=== PATIENT | male | born 1945 | race Caucasian/White ===

== ENCOUNTER 2018-11-25 19:46 | Observation (INO) | payer MEDICARE, OTHER ==
[~2018-11-25] VITALS: Ht 182.9 cm; Wt 163.8 kg
[~2018-11-25 19:46] MED LIST: ACETAMINOPHEN650 M1 PO; CITALOPRAM HBR20 MG PO; COLESTIPOL HCL1 G1 PO; DIGOXIN250 MCG PO; HYDROCODON-ACE1 EAC3 PO; LANTUS100 UNIT/1 SQ; LANTUS100 UNITS/ SQ; LEVOTHYROXINE175 MCG PO; LISINOPRIL5 MG PO; LYRICA75 MG PO; MIRALAX PO; MIRALAX17 GM PO; MULTIVITAMIN W1 EACH PO; NASONEX; NOVOLOG100 UNITS1 SQ; PRAVASTATIN SOD20 MG PO; PRAVASTATIN SOD40 MG PO; SPIRONOLACTONE25 MG PO; SYNTHROID175 MCG PO; TORSEMIDE20 MG PO; ULTRAM 50MG50 MG PO; VITAMIN B-12500 MCG PO; VITAMIN D1000 UNI1 PO; VITMAIN PO; WARFARIN SODIU2.5 MG PO; WARFARIN SODIU7.5 MG PO; Z.0.DEMADEX20 MG; Z.0.DIOVAN40 MG; Z.0.HUMALOG100 UNIT/; Z.0.JANUVIA50 MG; Z.0.LANTUS100 UNIT/1; Z.0.NORVASC5 MG; Z.0.PRAVASTATIN SOD4; Z.0.SPIRONOLACTONE50; Z.0.SYNTHROID175 MCG
--- OUTSIDE RECORDS SUMMARY | 2018-11-25 19:50 | XMS REPORT | Summary of Care ---
Author Author Roopa Freeman LVN Organization Unknown Address Unknown Phone Unavailable Care Team Providers Care Bond Writer Name Role Phone MARIO Gonzales, CRISTIAN Unavailable Unavailable Roopa Freeman LVN Unavailable Unavailable CADY Gonzales, ANIBAL Unavailable Unavailable TOBIAS Gonzales, JENSEN Unavailable Unavailable MARIO SPIVEY IA, CRISTIAN Quezada Unavailable Unavailable Tobias SPIVEY, Jensen Unavailable Unavailable SUSAN SPIVEY IA, TEMI Monaco Unavailable Unavailable GHASSAN SPIVEY IA, CHARMAINE COSME Unavailable Unavailable ESCOBAR SPIVEY [place], REILLY Chavez Unavailable Unavailable Johny SPIVEY, Jordi Unavailable Unavailable Unavailable Unavailable Functional Status Name Dates Details Functional status health issues are not documented Status: Name Dates Details Cognitive status health issues are not documented Status: Problems Name Dates Details Murmur (785.2, R01.1) Status: Active Restless legs syndrome (333.94, G25.81) Status: Active Pre-procedural examination (V72.84, Z01.818) Status: Active Colon cancer screening (V76.51, Z12.11) Status: Active Need for hepatitis C screening test (V73.89, Z11.59) Status: Active Neuropathy (355.9, G62.9) Status: Active Need for Tdap vaccination (V06.1, Z23) Status: Active Lymphedema (457.1, I89.0) Status: Active Need for pneumococcal vaccine (V03.82, Z23) Status: Active Dyspnea on exertion (786.09, R06.09) Status: Active Obstructive sleep apnea (327.23, G47.33) Status: Active 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, 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) Status: Active Conjunctivitis (372.30, H10.9) Status: Active Constipation (564.00, K59.00) Status: Active Multiple wounds of skin (782.9, R23.8) Status: Active Falling (E888.9, R29.6) Status: Active Encounter for current long-term use of anticoagulants (V58.61, Z79.01) Status: Active Annual physical exam (V70.0, Z00.00) Status: Active 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, E11.49) Status: Active Venous insufficiency (459.81, I87.2) Status: Active Depressive disorder (311, F32.9) Status: Active Osteoarthritis (715.90, M19.90) Status: Active Lumbar foraminal stenosis (724.02, M99.83) Status: Active Morbid obesity (278.01, E66.01) Status: Active Postoperative urinary retention (997.5, N99.89) Status: Active Peripheral vascular disease (443.9, I73.9) Status: Active Diabetes mellitus (250.00, E11.9) Status: Active Renal cyst, right (753.10, N28.1) Status: Active 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, Z95.2) Status: Active Stasis edema, bilateral (459.30, I87.303) Status: Active Cellulitis, unspecified cellulitis site (682.9, L03.90) Status: Active Anticoagulant long-term use (V58.61, Z79.01) Status: Active Aortic valve stenosis, nonrheumatic (424.1, I35.0) Status: Active 3-vessel CAD (414.00, I25.10) Status: Active CAD S/P percutaneous coronary angioplasty (414.01, I25.10) Status: Active Stage III chronic kidney disease (585.3, N18.3) Status: Active Bilateral edema of lower extremity (782.3, R60.0) Status: Active Atrial fibrillation (427.31, I48.91) Status: Active Chronic pain (338.29, G89.29) Status: Active Influenza vaccine needed (V04.81, Z23) Status: Active Type 2 diabetes mellitus with chronic kidney disease, with long-term current use of insulin, unspecified CKD stage (250.40, E11.22) Status: Active Essential (primary) hypertension (401.9, I10) Status: Active Mixed hyperlipidemia (272.2, E78.2) Status: Active Hypothyroidism (244.9, E03.9) Status: Active Vitamin D deficiency (268.9, E55.9) Status: Active Pancreatic mass (577.9, K86.9) Status: Active Counseling regarding advanced directives (V65.49, Z71.89) Status: Active Medications Name Dates Details GlucaGen HypoKit 1 MG Injection Solution Reconstituted Use as needed for severe hypoglycemia ANIBAL LAZAR M.D. * Start : 25-Aug-2012 Active Spironolactone 50 MG Oral Tablet TAKE 1 TABLET EVERY DAY * Quantity: 90 Refills: 3 CRISTIAN MARTIN M.D. * Start : 25-Aug-2012 Active Vitamin D 1000 UNIT CAPS 3 a day * Refills: 0 ANIBAL LAZAR M.D. * Start : 25-Aug-2012 Active Vitamin B-12 500 MCG Oral Tablet TAKE 1 TABLET EVERY OTHER DAY. * Refills: 0 ANIBAL LAZAR M.D. * Start : 25-Aug-2012 Active OneTouch Verio In Vitro Strip Check BG 4x a day * Quantity: 4 Refills: 4 ANIBAL LAZAR M.D. * Start : 26-Aug-2012 Active 100 Strip Box OneTouch Delica Lancets 33G Check BG 3x a day * Refills: 0 ANIBAL LAZAR M.D. * Start : 26-Aug-2012 Active Insulin Syringe 29G X 1/2" 1 ML 5 a day * Quantity: 500 Refills: 3 ANIBAL LAZAR M.D. * Start : 26-Aug-2012 Active Multi-Day Vitamins TABS TAKE 1 TABLET DAILY. * Refills: 0 Active Pravastatin Sodium 40 MG Oral Tablet TAKE 1 TABLET AT BEDTIME. * Quantity: 90 Refills: 3 CRISTIAN MARTIN M.D. * Start : 22-Nov-2014 Active NovoLOG 100 UNIT/ML Subcutaneous Solution INJECT 50-75 UNITS WITH MEALS, INJECT 10-20 UNITS WITH SNACKS; Up to 200 a day * Quantity: 20 Refills: 1 ANIBAL LAZAR M.D. Active 10 ML Vial Tresiba FlexTouch 200 UNIT/ML Subcutaneous Solution Pen-injector INJECT 60-70 UNITS EVERY DAY MAY SELF ADJUST UP TO 120 UNITS A DAY * Quantity: 6 Refills: 0 ANIBAL LAZAR M.D. * Start : 21-May-2016 Active 3 x 3 ML Pen BD Pen Needle Mini U/F 31G X 5 MM 1 a day * Quantity: 1 Refills: 3 ANIBAL LAZAR M.D. * Start : 21-May-2016 Active 100 Unit Box MiraLax Oral Powder TAKE SCOOP PRN * Refills: 0 Active Gabapentin 100 MG Oral Capsule Take 1 capsule in the morning and take 2 capsules at night * Quantity: 90 Refills: 2 CRISTIAN MARTIN M.D. * Start : 09-Feb-2018 Active Torsemide 20 MG Oral Tablet TAKE 1 TABLET ONCE DAILY. * Quantity: 90 Refills: 1 JENSEN KC M.D. Active BD Insulin Syringe U/F 30G X 1/2" 1 ML USE 5 TIMES A DAY * Quantity: 5 Refills: 3 ANIBAL LAZAR M.D. * Start : 10-Nov-2017 Active 100 Unit Box Clopidogrel Bisulfate 75 MG Oral Tablet TAKE 1 TABLET BY MOUTH EVERY DAY * Quantity: 90 Refills: 1 JENSEN KC M.D. * Start : 19-Sep-2018 Active [place] Nasal Mist SOLN USE NEEDED * Refills: 0 Active Levothyroxine Sodium 125 MCG Oral Tablet TAKE 2 TABLETS BY MOUTH EVERY DAY WED TO ; 3 TABLETS ON SUN * Quantity: 190 Refills: 1 ANIBAL LAZAR M.D. * Start : 30-Jul-2018 Active Hydrocodone-Acetaminophen 10-325 MG Oral Tablet TAKE 1 TABLET EVERY 6 HOURS as needed- DR. BARRERA * Refills: 0 Active Aspirin EC Low Dose 81 MG Oral Tablet Delayed Release * Quantity: 30 Refills: 6 CRISTIAN MARTIN M.D. * Start : 26-Aug-2018 Active Allergies and Adverse Reactions Name Dates Details No Known Drug Allergies (Allergy) Status: Active Past Medical History Name Dates Details Influenza vaccine needed (V04.81, Z23) Status: Active History of Abscess of toe of left foot (681.10, L02.612) Status: Resolved History of Accidental fall, initial encounter (E888.9, W19.XXXA) Status: Resolved History of Atherosclerosis Of The Anterior Tibial Artery (440.20) Status: Resolved History of Atrial fibrillation (427.31, I48.91) Status: Resolved History of Cellulitis of both lower extremities (682.6, L03.115) Status: Resolved History of Cellulitis of right lower leg (682.6, L03.115) Status: Resolved History of Chronic midline low back pain without sciatica (724.2, M54.5) Status: Resolved History of Chronic Renal Failure (585.9) Status: Resolved History of congestive heart disease (V12.59, Z86.79) Status: Resolved History of Cyst of skin (706.2, L72.9) Status: Resolved History of decubitus ulcer (V13.3, Z87.2) Status: Resolved History of depression (V11.8, Z86.59) Status: Resolved History of Diabetic peripheral neuropathy (250.60, E11.42) Status: Resolved History of diarrhea (V12.79, Z87.898) Status: Resolved History of Ear bleeding, right (388.69, H92.21) Status: Resolved History of eating disorder (V11.8, Z86.59) Status: Resolved History of edema (V13.89, Z87.898) Status: Resolved History of Excessive anticoagulation (V58.61) Status: Resolved History of Knee pain, right (719.46, M25.561) Status: Resolved History of laceration of skin (V15.59, Z87.828) Status: Resolved History of leukocytosis (V12.3, Z86.2) Status: Resolved History of low back pain (V13.59, Z87.39) Status: Resolved History of Lumbar disc disease with radiculopathy (722.10, M51.16) Status: Resolved History of Non-pressure chronic ulcer of lower leg (707.10, L97.909) Status: Resolved History of Onychomycosis of toenail (110.1, B35.1) Status: Resolved History of Other atopic dermatitis (691.8, L20.89) Status: Resolved History of peripheral vascular disease (V12.59, Z86.79) Status: Resolved History of pilonidal cyst (V13.3, Z87.2) Status: Resolved History of Sacroiliac joint pain (724.6, M53.3) Status: Resolved History of sebaceous cyst (V13.3, Z87.2) Status: Resolved History of sebaceous cyst (V13.3, Z87.2) Status: Resolved History of Skin lesion (709.9, L98.9) Status: Resolved History of SOB (shortness of breath) on exertion (786.05, R06.02) Status: Resolved History of Ulcer, venous stasis (454.0, I83.009) Status: Resolved History of Ulnar nerve entrapment (354.2, G56.20) Status: Resolved History of Venous ulcer (707.9, I83.009) Status: Resolved Personal history of diabetic foot ulcer (V12.29, Z86.31) Status: Resolved Procedures Procedure Dates Details [QL] HEMOGLOBIN A1c Date: 10-Oct-2018 [[facility]] LIPID PANEL Date: 10-Oct-2018 [[facility]] MICROALBUMIN, RANDOM URINE (W/CREATININE) Date: 10-Oct-2018 [[facility]] VITAMIN D, 25-HYDROXY, LC/MS/MS Date: 10-Oct-2018 History of Appendectomy Completed History of Tonsillectomy Completed History of Knee Surgery Completed History of Foot Surgery Completed History of Knee Replacement Completed History of Neuroplasty Decompression Median Nerve At Carpal Tunnel Completed History of Colonoscopy Completed Immunization Name Dates Details Influenza on: 21-Jul-2012 Fluzone INJ Lot #: [id number] on: 08-Aug-2013 Fluzone INJ Lot #: [id number] on: 24-Jul-2014 Fluzone INJ Lot #: [id number] on: 19-Aug-2015 Prevnar 13 Intramuscular Suspension Lot #: [id number] on: 19-Aug-2015 Tdap Lot #: [id number] on: 16-Mar-2016 Fluzone INJ Lot #: [id number] on: 23-Jul-2016 Pneumococcal polysaccharide vaccine, 23 valent Lot #: [id number] on: 02-Sep-2016 Fluzone High-Dose 0.5 ML Intramuscular Suspension Prefilled Syringe Lot #: [id number] on: 04-Aug-2017 Fluzone High-Dose 0.5 ML Intramuscular Suspension Prefilled Syringe Lot #: [id number] on: 26-Aug-2018 Family History Name Dates Details Family history of Cerebral Artery Occlusion Comments: Family History Status: Active Family history of Coronary Artery Disease (V17.49) Comments: Family History Status: Active Family history of Hypertension (V17.49) Comments: Family History Status: Active Name Dates Details Family history of coronary artery disease (V17.3, Z82.49) Status: Active Name Dates Details Family history of coronary artery disease (V17.3, Z82.49) Status: Active Name Dates Details Family history of coronary artery disease (V17.3, Z82.49) Status: Active Family history of cardiac disorder (V17.49, Z82.49) Status: Active Social History Name Dates Details - Status: Name Dates Details Former smoker Vital Signs Date Test Result Details No Known Vitals to report Results Date Description Value Details Results not documented Plan of Care Name Dates Details Planned Observations Planned Goals not documented Planned Encounters Appointment; CRISTIAN MARTIN M.D. On: 25-Nov-2018 11:30 Appointment; ANIBAL LAZAR M.D. On: 10-Jan-2019 14:15 Appointment; NICKY LR On: 09-Jun-2019 13:00 Appointment; JENSEN KC M.D. On: 09-Jun-2019 14:00 Interventions Provided Medication Changes* Gabapentin 100 MG Oral Capsule - Renew Instructions Name Dates Details Instructions not documented Encounters Appointment; JENSEN KC M.D. Encounter Diagnosis: Problem not documented On: 25-Nov-2016 11:00 Appointment; LORRI RYAN NP Encounter Diagnosis: Problem not documented On: 10-Dec-2016 9:30 Appointment; CRISTIAN MARTIN M.D. Encounter Diagnosis: Problem not documented On: 18-Dec-2016 15:45 Appointment; CHRISTOS HINDS Encounter Diagnosis: Problem not documented On: 22-Dec-2016 11:00 Appointment; JENSEN KC M.D. Encounter Diagnosis: Problem not documented On: 28-Dec-2016 9:00 Appointment; CRISTIAN MARTIN M.D. Encounter Diagnosis: Problem not documented On: 11-Jan-2017 14:15 Appointment; CRISTIAN MARTIN M.D. Encounter Diagnosis: Problem not documented On: 08-Feb-2017 14:00 Appointment; ANIBAL LAZAR M.D. Encounter Diagnosis: Problem not documented On: 10-Feb-2017 8:00 Appointment; CRISTIAN MARTIN M.D. Encounter Diagnosis: Problem not documented On: 08-Mar-2017 14:15 Appointment; LORRI RYAN NP Encounter Diagnosis: Problem not documented On: 07-Apr-2017 9:30 Appointment; LORRI RYAN NP Encounter Diagnosis: Problem not documented On: 22-Apr-2017 8:45 Appointment; LORRI RYAN NP Encounter Diagnosis: Problem not documented On: 21-May-2017 8:00 Appointment; ANIBAL LAZAR M.D. Encounter Diagnosis: Problem not documented On: 25-May-2017 14:15 Appointment; CRISTIAN MARTIN M.D. Encounter Diagnosis: Problem not documented On: 04-Jun-2017 13:15 Appointment; CRISTIAN MARTIN M.D. Encounter Diagnosis: Problem not documented On: 07-Jul-2017 13:30 Appointment; CRISTIAN MARTIN M.D. Encounter Diagnosis: Problem not documented On: 04-Aug-2017 16:00 Appointment; ANIBAL LAZAR M.D. Encounter Diagnosis: Problem not documented On: 23-Aug-2017 14:45 Appointment; CRISTIAN MARTIN M.D. Encounter Diagnosis: Problem not documented On: 21-Sep-2017 14:45 Appointment; JOSE-MS, ECHO Encounter Diagnosis: Problem not documented On: 27-Sep-2017 10:00 Appointment; TEMI DAVIS M.D. Encounter Diagnosis: Problem not documented On: 05-Oct-2017 10:00 Appointment; CRISTIAN MARTIN M.D. Encounter Diagnosis: Problem not documented On: 19-Oct-2017 10:15 Appointment; CRISTIAN MARTIN M.D. Encounter Diagnosis: Problem not documented On: 02-Nov-2017 11:30 Appointment; CRISTIAN MARTIN M.D. Encounter Diagnosis: Problem not documented On: 02-Dec-2017 11:30 Appointment; ANIBAL LAZAR M.D. Encounter Diagnosis: Problem not documented On: 06-Dec-2017 10:00 Appointment; JENSEN KC M.D. Encounter Diagnosis: Problem not documented On: 27-Dec-2017 9:00 Appointment; CRISTIAN MARTIN M.D. Encounter Diagnosis: Problem not documented On: 28-Dec-2017 10:00 Appointment; HAIDERORE-MS, ECHO Encounter Diagnosis: Problem not documented On: 10-Jan-2018 11:00 Appointment; JENSEN KC M.D. Encounter Diagnosis: Problem not documented On: 12-Jan-2018 14:20 Appointment; CRISTIAN MARTIN M.D. Encounter Diagnosis: Problem not documented On: 13-Jan-2018 11:45 Appointment; CHARMAINE FERRELL M.D. Encounter Diagnosis: Problem not documented On: 14-Jan-2018 9:30 Appointment; REILLY CODY M.D. Encounter Diagnosis: Problem not documented On: 14-Jan-2018 10:45 Appointment; CRISTIAN MARTIN M.D. Encounter Diagnosis: Problem not documented On: 01-Feb-2018 13:15 Appointment; ANIBAL LAZAR M.D. Encounter Diagnosis: Problem not documented On: 09-Mar-2018 13:00 Appointment; CRISTIAN MARTIN M.D. Encounter Diagnosis: Problem not documented On: 09-Mar-2018 15:15 Appointment; JENSEN KC M.D. Encounter Diagnosis: Problem not documented On: 23-Mar-2018 10:00 Appointment; JORDI REYNOSO M.D. Encounter Diagnosis: Problem not documented On: 23-Mar-2018 10:00 Appointment; LORRI RYAN NP Encounter Diagnosis: Problem not documented On: 30-Mar-2018 10:15 Appointment; CRISTIAN MARTIN M.D. Encounter Diagnosis: Problem not documented On: 04-Apr-2018 14:00 Appointment; JENSEN KC M.D. Encounter Diagnosis: Problem not documented On: 06-Apr-2018 9:00 Appointment; LORRI RYAN NP Encounter Diagnosis: Problem not documented On: 13-Apr-2018 10:30 Appointment; JORDI REYNOSO M.D. Encounter Diagnosis: Problem not documented On: 14-Apr-2018 11:15 Appointment; JENSEN KC M.D. Encounter Diagnosis: Problem not documented On: 15-Apr-2018 15:40 Appointment; JENSEN KC M.D. Encounter Diagnosis: Problem not documented On: 04-May-2018 9:40 Appointment; CRISTIAN MARTIN M.D. Encounter Diagnosis: Problem not documented On: 10-May-2018 13:45 Appointment; JENSEN KC M.D. Encounter Diagnosis: Problem not documented On: 06-Jun-2018 9:00 Appointment; ANIBAL LAZAR M.D. Encounter Diagnosis: Problem not documented On: 24-Jun-2018 12:00 Appointment; KASEY LR Encounter Diagnosis: Problem not documented On: 24-Jun-2018 15:30 Appointment; JENSEN KC M.D. Encounter Diagnosis: Problem not documented On: 24-Jun-2018 16:00 Appointment; CRISTIAN MARTIN M.D. Encounter Diagnosis: Problem not documented On: 27-Jun-2018 10:30 Appointment; BOBBY HARLEY NP Encounter Diagnosis: Problem not documented On: 12-Jul-2018 12:00 Appointment; CRISTIAN MARTIN M.D. Encounter Diagnosis: Problem not documented On: 26-Aug-2018 10:30 Appointment; CRISTIAN MARTIN M.D. Encounter Diagnosis: Problem not documented On: 26-Aug-2018 10:30 Appointment; ANIBAL LAZAR M.D. Encounter Diagnosis: Problem not documented On: 10-Oct-2018 15:15 Appointment; JORDI REYNOSO M.D. Encounter Diagnosis: Problem not documented On: 12-Oct-2018 9:15
[2018-11-25 21:29] LABS: BASOPHILS # (AUTO) 0.1 (0.0-0.1); BASOPHILS % 0.6 % (0.0-1.0); EOSINOPHILS # (AUTO) 0.2 (0.0-0.4); EOSINOPHILS % 2.4 % (0.0-6.0); HEMATOCRIT 35.7 % (38.2-49.6); HEMOGLOBIN 11.2 g/dL (14.0-18.0); LYMPHOCYTES # (AUTO) 1.8 (1.0-3.2); MEAN CORPUSCULAR HEMOGLOBIN 30.2 pg (28-32); MEAN CORPUSCULAR HGB CONC 31.4 g/dL (31-35); MEAN CORPUSCULAR VOLUME 96.2 fL (81-99); MONOCYTES # (AUTO) 0.9 (0.2-0.8); MONOCYTES % 9.1 % (4.4-11.3); NEUTROPHILS # (AUTO) 6.4 (2.1-6.9); NEUTROPHILS % 68.5 % (38.7-80.0); PLATELET COUNT 199 x10e3/uL (140-360); RED BLOOD COUNT 3.71 x10e6/uL (4.3-5.7); RED CELL DISTRIBUTION WIDTH 18.1 % (11.7-14.4)
[2018-11-25 21:57] LABS: ALBUMIN 3.2 g/dL (3.5-5.0); ANION GAP 12.6 mmol/L (8-16); CALCIUM 9.1 mg/dL (8.4-10.2); CREATININE, SERUM 1.37 mg/dL (0.72-1.25); POTASSIUM 4.6 mmol/L (3.5-5.1)
[2018-11-25 22:03] LABS: CREATINE KINASE MB 3.8 ng/mL (0-5.0)
--- NOTE | 2018-11-25 22:49 | Diagnostic Imaging Report ---
Study made available for interpretation on 11/25/2018 at 10:30 PM. EXAMINATION: Head and cervical spine CT without contrast. HISTORY: Status post fall, hitting the back of the head, neck stiffness, head and neck pain. COMPARISON: None. TECHNIQUE: Multidetector axial images were obtained without contrast from the foramen magnum to the vertex and through the cervical spine. The images were reconstructed using brain and bone algorithms. Thin section brain images were reformatted into coronal and sagittal planes. Image quality: Difficulty accommodating the head within the scanner due to patient's rigidity, also patient's large body habitus limits performing adequately the head and neck studies as well as the interpretation of the studies. Dose modulation, iterative reconstruction, and/or weight based adjustment of the mA/kV was utilized to reduce the radiation dose to as low as reasonably achievable. HEAD CT FINDINGS: Skull: No lytic or blastic lesions. No fractures. Parenchyma: The anterior portion of the frontal lobes was not included in the exam. No abnormalities in the visualized brain parenchyma. No mass, hemorrhage or CT evidence of acute vascular insult. Brain volume: Normal for age. Ventricles: No hydrocephalus or displacement. Arteries: No density suggestive of thrombus. Dural sinuses: No abnormal density. Extra-axial spaces: No abnormal density. Foramen magnum: No mass, Chiari malformation, or basilar invagination. Sella: No obvious mass. Paranasal/mastoid sinuses: Imaged portions unremarkable. CERVICAL SPINE CT FINDINGS: Alignment:Straightening of the cervical lordosis. Soft tissues: Normal. Vertebrae: Normal height and density. No acute fracture, infection or neoplasm. Anterior bridging osteophytes from C5 to T1. Probable interbody fusion from C6 to T1 which is only partially visualized. Degenerative changes: C1-C2: Degenerative changes without stenosis C2-C3: Prominent uncovertebral and facet arthrosis. Moderate right and severe left foraminal stenosis. C3-C4: Uncovertebral and facet arthrosis. Severe bilateral foraminal stenosis. C4-C5: Uncovertebral and facet arthrosis. Severe bilateral foraminal stenosis. C5-C6: Disc osteophyte complex formation, uncovertebral and facet arthrosis. Severe right and mild left foraminal stenosis. C6-C7: Disc osteophyte complex formation, uncovertebral and facet arthrosis. Mild right and moderate left foraminal stenoses C7-T1: Uncovertebral and facet arthropathies. Severe right and moderate left foraminal stenosis. IMPRESSION: Suboptimal evaluation of the head and cervical spine as detailed above. Head CT: The frontal lobes are not completely included in this study and cannot be evaluated. No abnormalities in the visualized brain parenchyma, particularly no evidence of hemorrhage. Cervical spine CT: 1. Grossly nonacute displaced fractures or dislocations. 2. Chronic degenerative changes as described. Note: Acute post traumatic spinal cord, vascular or ligamentous injury cannot adequately be assessed with CT. Signed by: Dr. Shelia Duenas M.D. on 11/25/2018 10:46 PM
--- NOTE | 2018-11-25 23:02 | Diagnostic Imaging Report ---
EXAMINATION: CT of the lumbar spine HISTORY: Status post fall back, head and spine trauma, pain. COMPARISON: None available TECHNIQUE: Multidetector helical axial images were obtained without contrast from L1 to S1. The images were reconstructed using bone and soft tissue algorithms and were viewed in axial, sagittal, and coronal planes. Dose modulation, iterative reconstruction, and/or weight based adjustment of the mA/kV was utilized to reduce the radiation dose to as low as reasonably achievable. Image quality: Poor spatial resolution related to x-ray beam attenuation significantly limited the evaluation of the study. FINDINGS: Alignment: Straightening of the lumbar lordosis.. Vertebral bodies: - Diffuse osteopenia. - Bone bridging laterally from T12 to L5. -Left posterior fusion from L2 to S1 and on the right L5-S1. -Large likely degenerative subchondral cyst adjacent to the superior endplate of S1. -Also interspinous fusion in the thoracolumbar region and at L3-L4. Paraspinal muscles: Prominent atrophy of the paraspinal muscles. Intervertebral disks: -Limited evaluation, overall this bulges, marginal endplate osteophytes and facet arthroses from L2-L3 to L5-S1 with canal and foraminal narrowing, more prominent on the left at L4-L5 and on the right at L5-S1. -Symmetric disc bulge with vacuum phenomena at L5-S1. IMPRESSION: 1. Very suboptimal study as detail above. In spite of this limitation grossly no acute displaced fracture or dislocation. 2. Diffuse osteopenia and multilevel chronic degenerative changes as detailed above. 3. Interbody and posterior elements fusion as described, comparison to prior studies if available is recommended. Signed by: Dr. Shelia Duenas M.D. on 11/25/2018 10:59 PM
[2018-11-25] MEDS ORDERED: LEVOTHYROXINE125 MCG PO (23:40)
[2018-11-25] MEDS ORDERED: HYDROCODON-ACE1 EAC9 PO (23:40)
[2018-11-25] MEDS ORDERED: GABAPENTIN100 MG PO ×2 (23:40)
[2018-11-25] MEDS ORDERED: TRESIBA SC (23:40)
[2018-11-25] MEDS ORDERED: SPIRONOLACTONE50 MG PO (23:40)
[2018-11-25] MEDS ORDERED: CLOPIDOGREL75 MG PO (23:40)
[2018-11-25] MEDS ORDERED: PRAVASTATIN SOD40 MG PO (23:40)
[2018-11-25] MEDS ORDERED: NOVOLOG100 UNITS1 (23:40)
[2018-11-25] MEDS ORDERED: ASPIR 8181 MG PO (23:50)
[2018-11-25] MEDS ORDERED: SODIUM CHLORIDE 0.9% 1000ML 1,000 ML ONE (23:55)
[2018-11-26] VITALS (9 sets, daily range): BP systolic 100–125; BP diastolic 51–60
[2018-11-26] MEDS ORDERED: SODIUM CHLORIDE 0.9% 1000ML 1,000 ML IV SCH (00:04)
--- OUTSIDE RECORDS SUMMARY | 2018-11-26 00:10 | XMS REPORT ---
Author [facility] Address Unknown Phone Unavailable Care Team Providers Care Information Writer Name Role Phone Maciej FRENCH Unavailable Unavailable Problems This patient has no known problems. Allergies, Adverse Reactions, Alerts This patient has no known allergies or adverse reactions. Medications This patient has no known medications. Results Test Description Test Time Test Comments Text Results Atomic Results Result Comments CT LUMBAR SPINE WO 2018-11-25 22:47:00 [place] [address] Patient Name: OPHELIA GRAY JR MR #: [id number] : 1945 Age/Sex: 73/M Req #: [id number] Adm Physician: Ordered by: REILLY FRENCH MD Report #: [id number] Location: ER Room/Bed: Procedure: [id number] CT/CT LUMBAR SPINE WO Exam Date: 11/25/18 Exam Time: 2119 REPORT STATUS: Signed EXAMINATION: CT of the lumbar spine HISTORY: Status post fall back, head and spine trauma, pain. COMPARISON: None available TECHNIQUE: Multidetector helical axial images were obtained without contrast from L1 to S1. The images were reconstructed using bone and soft tissue algorithms and were viewed in axial, sagittal, and coronal planes. Dose modulation, iterative reconstruction, and/or weight based adjustment of the mA/kV was utilized to reduce the radiation dose to as low as reasonably achievable. Image quality: Poor spatial resolution related to x-ray beam attenuation significantly limited the evaluation of the study. FINDINGS: Alignment: Straightening of the lumbar lordosis.. Vertebral bodies: - Diffuse osteopenia. - Bone bridging laterally from T12 to L5. -Left posterior fusion from L2 to S1 and on the right L5-S1. -Large likely degenerative subchondral cyst adjacent to the superior endplate of S1. -Also interspinous fusion in the thoracolumbar region and at L3-L4. Paraspinal muscles: Prominent atrophy of the paraspinal muscles. Intervertebral disks: -Limited evaluation, overall this bulges, marginal endplate osteophytes and facet arthroses from L2-L3 to L5-S1 with canal and foraminal narrowing, more prominent on the left at L4-L5 and on the right at L5-S1. -Symmetric disc bulge with vacuum phenomena at L5-S1. IMPRESSION: 1. Very suboptimal study as detail above. In spite of this limitation grossly no acute displaced fracture or dislocation. 2. Diffuse osteopenia and multilevel chronic degenerative changes as detailed ab ove. 3. Interbody and posterior elements fusion as described, comparison to prior studies if available is recommended. Signed by: Dr. Killian Duenas M.D. on 11/25/2018 10:59 PM Dictated By: KILLIAN DUENAS MD 58 Transcribed By: JOSE on 11/25/182258 COPY TO: REILLY FRENCH MD CT BRAIN WO 2018-11-25 22:38:00 [place] [address] Patient Name: OPHELIA GRAY JR MR #: [id number] : 1945 Age/Sex: 73/M Req #: [id number] Adm Physician: Ordered by: REILLY FRENCH MD Report #: [id number] Location: Room/Bed: Procedure: [id number] CT/CT BRAIN WO Exam Date: 11/25/18 Exam Time: 2119 REPORT STATUS: Signed Study made available for interpretation on 11/25/2018 at 10:30 PM. EXAMINATION: Head and cervical spine CT without contrast. HISTORY: Status post fall, hitting the back of the head, neck stiffness, head and neck pain. COMPARISON: None. TECHNIQUE: Multidetector axial images were obtained without contrast from the foramen magnum to the vertex and through the cervical spine. The images were reconstructed using brain and bone algorithms. Thin section brain images were reformatted into coronal and sagittal planes. Image quality: Difficulty accommodating the head within the scanner due to patient's rigidity, also patient's large body habitus limits performing adequately the head and neck studies as well as the interpretation of the studies. Dose modulation, iterative reconstruction, and/or weight based adjustment of the mA/kV was utilized to reduce the radiation dose to as low as reasonably achievable. HEAD CT FINDINGS: Skull: No lytic or blastic lesions. No fractures. Parenchyma: The anterior portion of the frontal lobes was not included in the exam. No abnormalities in the visualized brain parenchyma. No mass, hemorrhage or CT evidence of acute vascular insult. Brain volume: Normal for age. Ventricles: No hydrocephalus or displacement. Arteries: No density suggestive of thrombus. Dural sinuses: No abnormal density. Extra-axial spaces: No abnormal density. Foramen magnum: No mass, Chiari malformation, or basilar invagination. Sella: No obvious mass. Paranasal/mastoid sinuses: Imaged portions unremarkable. CERVICAL SPINE CT FINDINGS: Alignment:Straightening of the cervical lordosis. Soft tissues: Normal. Vertebrae: Normal height and density. No acute fracture, infection or neoplasm. Anterior bridging osteophytes from C5 to T1. Probable interbody fusion from C6 to T1 which is only partially visualized. Degenerative changes: C1-C2: Degenerative changes without stenosis C2- C3: Prominent uncovertebral and facet arthrosis. Moderate right and severe left foraminal stenosis. C3-C4: Uncovertebral and facet arthrosis. Severe bilateral foraminal stenosis. C4-C5: Uncovertebral and facet arthrosis. Severe bilateral foraminal stenosis. C5-C6: Disc osteophyte complex formation, uncovertebral and facet arthrosis. Severe right and mild left foraminal stenosis. C6-C7: Disc osteophyte complex formation, uncovertebral and facet arthrosis. Mild right and moderate left foraminal stenoses C7- T1: Uncovertebral and facet arthropathies. Severe right and moderate left foraminal stenosis. IMPRESSION: Suboptimal evaluation of the head and cervical spine as detailed above. Head CT: The frontal lobes are not completely included in this study and cannot be evaluated. No abnormalities in the visualized brain parenchyma, particularly no evidence of hemorrhage. Cervical spine CT: 1. Grossly nonacute displaced fractures or dislocations. 2. Chronic degenerative changes as described. Note: Acute post traumatic spinal cord, vascular or ligamentous injury cannot adequately be assessed with CT. Signed by: Dr. Killian Duenas M.D. on 11/25/2018 10:46 PM Dictated By: KILLIAN DUENAS MD 45 Transcribed By: JOSE on 11/25/182245 COPY TO: REILLY FRENCH MD CT CERVICAL SPINE WO 2018-11-25 22:38:00 [place] [address] Patient Name: OPHELIA GRAY JR MR #: [id number] : 1945 Age/Sex: 73/M Req #: [id number] Adm Physician: Ordered by: REILLY FRENCH MD Report #: [id number] Location: ER Room/Bed: Procedure: [id number] CT/CT CERVICAL SPINE WO Exam Date: 11/25/18 Exam Time: 2119 REPORT STATUS: Signed Study made available for interpretation on 11/25/2018 at 10:30 PM. EXAMINATION: Head and cervical spine CT without contrast. HISTORY: Status post fall, hitting the back of the head, neck stiffness, head and neck pain. COMPARISON: None. TECHNIQUE: Multidetector axial images were obtained without contrast from the foramen magnum to the vertex and through the cervical spine. The images were reconstructed using brain and bone algo rithms. Thin section brain images were reformatted into coronal and sagittal planes. Image quality: Difficulty accommodating the head within the scanner due to patient's rigidity, also patient's large body habitus limits performing adequately the head and neck studies as well as the interpretation of the studies. Dose modulation, iterative reconstruction, and/or weight based adjustment of the mA/kV was utilized to reduce the radiation dose to as low as reasonably achievable. HEAD CT FINDINGS: Skull: No lytic or blastic lesions. No fractures. Parenchyma: The anterior portion of the frontal lobes was not included in the exam. No abnormalities in the visualized brain parenchyma. No mass, hemorrhage or CT evidence of acute vascular insult. Brain volume: Normal for age. Ventricles: No hydrocephalus or displacement. Arteries: No density suggestive of thrombus. Dural sinuses: No abnormal density. Extra-axial spaces: No abnormal density. Foramen magnum: No mass, Chiari malformation, or basilar invagination. Sella: No obvious mass. Paranasal/mastoid sinuses: Imaged portions unremarkable. CERVICAL SPINE CT FINDINGS: Alignment:Straightening of the cervical lordosis. Soft tissues: Normal. Vertebrae: Normal height and density. No acute fracture, infection or neoplasm. Anterior bridging osteophytes from C5 to T1. Probable interbody fusion from C6 to T1 which is only partially visualized. Degenerative changes: C1-C2: Degenerative changes without stenosis C2-C3: Prominent uncovertebral and facet arthrosis. Moderate right and severe left foraminal stenosis. C3-C4: Uncovertebral and facet arthrosis. Severe bilateral foraminal stenosis. C4-C5: Uncovertebral and facet arthrosis. Severe bilateral foraminal stenosis. C5-C6: Disc osteophyte complex formation, uncovertebral and facet arthrosis. Severe right and mild left foraminal stenosis. C6-C7: Disc osteophyte complex formation, uncovertebral and facet arthrosis. Mild right and moderate left foraminal stenoses C7-T1: Uncovertebral and facet arthropathies. Severe right and moderate left foraminal stenosis. IMPRESSION: Suboptimal evaluation of the head and cervical spine as detailed above. Head CT: The frontal lobes are not completely included in this study and cannot be evaluated. No abnormalities in the visualized brain parenchyma, particularly no evidence of hemorrhage. Cervical spine CT: 1. Grossly nonacute displaced fractures or dislocations. 2. Chronic degenerative changes as described. Note: Acute post traumatic spinal cord, vascular or ligamentous injury cannot adequately be assessed with CT. Signed by: Dr. Killian Duenas M.D. on 11/25/2018 10:46 PM Dictated By: KILLIAN DUENAS MD 45 Transcribed By: JOSE on 11/25/182245 COPY TO: REILLY DOOLEY MD
[2018-11-26] MEDS ORDERED: CYANOCOBALAMIN 500 MCG PO SCH (00:15)
[2018-11-26] MEDS ORDERED: ASPIRIN 81 MG CHEW TAB PO ONE (00:15)
[2018-11-26] MEDS ORDERED: NON-FORMULARY MEDICATION (Polyethylene Glycol 3350 (Miralax) 17 GM) PO SCH (00:15)
[2018-11-26] MEDS ORDERED: DEXTROSE 50% SYRINGE 50 ML IV PRN (00:15)
[2018-11-26] MEDS ORDERED: ONDANSETRON HCL INJ 2 MG/ML VIAL IV PRN (00:15)
--- NOTE | 2018-11-26 01:20 | NUR ---
Pt received from ER. Pt A&O and in no apparent distress. Pt on RA and tele. Uses walker to ambulate. All safety measures ensured, bed alarm on, and pt call bhatt near. Pt encouraged to use call bhatt for assistance.
[2018-11-26] MEDS: HYDROCODONE/APAP 10MG-325MG TAB PO SCH ×3 (06:12→18:15)
--- NOTE | 2018-11-26 06:58 | NUR ---
Walking rounds and report received from night nurse. POC discussed. Patient was instructed to call for assistance as needed and verbalized understanding. Call bhatt within reach.
[2018-11-26] MEDS: INSULIN REGULAR, HUMAN 100 UNIT/1 ML 3ML VIAL SQ SCH ×4 (07:30→21:01)
[2018-11-26] MEDS: TRISEBA SC SCH (08:29)
[2018-11-26] MEDS ORDERED: CHOLECALCIFEROL 1,000 UNIT TAB PO SCH (09:00)
[2018-11-26] MEDS ORDERED: TRESIBA 60 UNIT SC SCH (09:00)
[2018-11-26] MEDS ORDERED: LEVOTHYROXINE SODIUM 125 MCG TAB PO SCH (09:00)
[2018-11-26] MEDS ORDERED: SPIRONOLACTONE 25 MG TAB PO SCH (09:00)
[2018-11-26] MEDS ORDERED: ASPIRIN 81 MG CHEW TAB PO SCH (09:00)
[2018-11-26] MEDS ORDERED: TORSEMIDE 40 MG PO SCH (09:00)
[2018-11-26] MEDS ORDERED: POLYETHYLENE GLYCOL 3350 17 GM PACK PO SCH (09:00)
[2018-11-26] MEDS ORDERED: NON-FORMULARY MEDICATION (Spironolactone 50 MG) PO SCH (09:00)
[2018-11-26] MEDS ORDERED: CYANOCOBALAMIN 1,000 MCG TAB PO SCH (09:00)
[2018-11-26] MEDS ORDERED: HOME MEDICATION--PATIENTS OWN SC SCH (09:00)
[2018-11-26] MEDS ORDERED: TORSEMIDE 10 MG TAB PO SCH (09:00)
[2018-11-26] MEDS ORDERED: CLOPIDOGREL BISULFATE 75 MG TAB PO SCH (09:00)
[2018-11-26] MEDS ORDERED: GABAPENTIN 100 MG CAP PO SCH ×2 (09:00→21:00)
--- NOTE | 2018-11-26 09:45 | NUR ---
Dr. Nunez making rounds. POC discussed with patient and MD answered all questions at this time.
[2018-11-26 09:59] LABS: CREATINE KINASE MB 2.9 ng/mL (0-5.0)
--- NOTE | 2018-11-26 10:22 | NUR ---
Met earlier with pt. Educated on ALBA letter and he verbalized understanding and signed. Signed copy to pt, original to chart.
--- NOTE | 2018-11-26 10:32 | History and Physical ---
PCP: Nickolas Adams MD CHIEF COMPLAINT: Status post fall with intractable lower back pain. HISTORY: This 73-year-old male morbidly obese, walks with a walker at home. Apparently, he was taking furosemide and Aldactone for his lymphedema chronically in bilateral lower extremities. Patient was having some cramping and fell in the kitchen. He fell on Wednesday and after the fall he was having difficulty to get off the floor. Therefore, he scoots himself up and subsequently required assistance. Patient came in with a slight increase in CK level to approximately 1300. The patient is otherwise stable. He is able to ambulate now with a walker. He is still on IV fluids just generally for rehydration. The patient is otherwise stable at this time. PAST MEDICAL HISTORY 1. Degenerative disk disease both in the upper and lower spinal area, undergoing pain management. 2. Chronic anemia. 3. Hypertension. 4. Lymphedema. 5. Morbidly obese. 6. History of carpal tunnel syndrome with previous surgery. PAST SURGICAL HISTORY: Appendectomy, carpal tunnel surgery, tonsillectomy, hammertoe operation, left knee arthroplasty. SOCIAL HISTORY: Patient lives at home by himself. He does not smoke, use alcohol, or illegal drugs. ALLERGIES: TO NO KNOWN ALLERGIES. HOME MEDICATIONS: List is reviewed. REVIEW OF SYSTEMS: Lower back pain. PHYSICAL EXAMINATION VITAL SIGNS: Temperature is 98, blood pressure , pulse rate 54, respirations 18. GENERAL: The patient is not in acute distress. He is awake. HEENT: Normocephalic, atraumatic, anicteric. NECK: Supple grossly. PULMONARY: Diminished breath sounds due to body habitus. CARDIOVASCULAR: Regular rate and rhythm. ABDOMEN: Soft, morbidly obese. EXTREMITIES: Bilateral lymphedema. SKIN: Some skin abrasion to the lower back area. There is minimal skin drainage. NEUROLOGICAL: No focal deficit. LABORATORY DATA: Sodium is 139, potassium 4.6, chloride 104, bicarb 27, BUN 25, creatinine 1.4, glucose 135. WBC is 9.3, hemoglobin 11.2, hematocrit 35.7, and platelets 199,000. IMPRESSION 1. Lower back pain status post fall. 2. Morbidly obese. 3. Slight skin abrasion to the lower back area. 4. Bilateral lower extremity lymphedema. 5. Slight increase in CK level due to immobility. PLAN: Gentle IV rehydration. Resume home medication with some adjustment. We will monitor the patient closely. Repeated lab work. Patient is pain controlled and should be able to go home within 24 to 48 hours. Job#: [id number] WONG
--- NOTE | 2018-11-26 14:52 | NUR ---
Nutrition Screen Note RD Recommendation for Physician: Continue diet as ordered Plan of Care: RD following, monitoring for adequacy and tolerance Nutrition reason for involvement: Nutrition Risk Trigger - MST Primary Diagnose(s): lumbar strain, rhabdomyolysis Ht:72 in Wt:345lbs BMI:46.8 kg/m2 IBW:178lbs RD Assessment:(11/26/2018) Initial encounter with patient. Pt denies, N,V, D, nor has any difficulty chewing or swallowing. Pt normally eats twice a day. Current Diet: 1800 ADA Malnutrition Evaluation (11/26/2018) The patient does not meet criteria for a specified degree of malnutrition at this time. Will re-evaluate at follow-up as appropriate. Diet Education Needs Assessment: Diet education not indicated. Diet Adequacy: Meeting calorie needs, Meeting protein needs, Meeting fluid needs Tolerance: Tolerating PO Nutrition Care Level: Mehran Salgado RD, LD, [facility]
--- NOTE | 2018-11-26 18:50 | NUR ---
Patient sitting on side of bed without any complaints. Walking rounds done and report given to oncoming shift. Call bhatt within reach.
--- NOTE | 2018-11-26 18:59 | NUR ---
Report received and walking rounds complete. Pt sitting at bedside and in no apparent distress. Pt ambulates with walker. All safety measures ensured and pt call bhatt near. Pt encouraged to use call bhatt for assistance.
[2018-11-26] MEDS ORDERED: NON-FORMULARY MEDICATION (Pravastatin Sodium 40 MG) PO SCH (21:00)
[2018-11-26] MEDS ORDERED: PRAVASTATIN 20 MG TAB PO SCH (21:00)
--- NOTE | 2018-11-26 21:40 | NUR ---
Pt offered shower or bed bath but pt refused
[2018-11-27] MEDS: HYDROCODONE/APAP 10MG-325MG TAB PO SCH ×2 (00:16→06:12)
[2018-11-27 00:17] VITALS: BP 115/68
--- NOTE | 2018-11-27 03:32 | NUR ---
Pt abrasions on back are weepy and also has weepy area on L calf. Areas cleaned with NS and covered with gauze and abd pad.
[2018-11-27 05:30] VITALS: BP 119/61
[2018-11-27 06:04] LABS: ANION GAP 13.6 mmol/L (8-16); CALCIUM 8.9 mg/dL (8.4-10.2); CREATININE, SERUM 1.24 mg/dL (0.72-1.25); POTASSIUM 4.6 mmol/L (3.5-5.1)
--- NOTE | 2018-11-27 07:04 | NUR ---
Report given to oncoming nurse
[2018-11-27 07:05] VITALS: BP 127/66
[2018-11-27] MEDS: INSULIN REGULAR, HUMAN 100 UNIT/1 ML 3ML VIAL SQ SCH (07:30)
[2018-11-27] MEDS: TRISEBA SC SCH (08:38)
--- NOTE | 2018-11-27 08:44 | NUR ---
Dr. Nunze making rounds. Patient will be discharged home today and refused all his AM medications stated, "I will take them when I get home."
[2018-11-27] MEDS ORDERED: TORSEMIDE 10 MG TAB PO SCH (09:00)
--- NOTE | 2018-11-27 09:10 | NUR ---
Written instructions and prescription given. Patient verbalized understanding. IV dc'd, cath intact and small dressing applied. No bleeding noted. Patient called daughter for ride home.
[2018-11-27] MEDS ORDERED: KEFLEX500 MG PO (09:11)
--- NOTE | 2018-11-27 09:32 | Discharge Summary ---
PRIMARY CARE PHYSICIAN: Dr. Nickolas Adams. CHIEF COMPLAINT: Status post fall with lower back pain. HOSPITAL COURSE: The patient is a 73-year-old male with status post fall with abrasion to the left knee and lower back area. No significant redness but there is some drainage from the abrasion. The patient does have bilateral lower extremity lymphedema. He had stopped his medication, diuretic, especially the torsemide due to spasm of the lower extremity and also urination frequently. The patient is otherwise stable, however. The CT of the C-spine and L-spine, there is no compression fractures. There is degenerative disc disease. The patient is undergoing pain management. He will go home today, resume home medication. The patient may continue with torsemide, but he may cut the tablet in half to 20 mg daily. The patient is otherwise stable. We will give the patient Keflex 500 mg 3 times a day for 7 days. The patient will resume home medication. Followup with Dr. Nickolas Adams within a week. Job#: [id number] [place]
== END 2018-11-27 10:14 | disposition home or self-care (01) ==
LOC: ER 19:46 → ERHOLD 11-26 00:08 → IMCU 11-26 02:34
PROVIDERS: ADMIT Internal Medicine; ATTEND Internal Medicine
DX: M54.5 Low back pain (principal); I89.0 Lymphedema, not elsewhere classified; W19.XXXA Unspecified fall, initial encounter; M51.36 Other intervertebral disc degeneration, lumbar region; M50.90 Cervical disc disorder, unspecified, unspecified cervical region; S80.212A Abrasion, left knee, initial encounter; S30.810A Abrasion of lower back and pelvis, initial encounter; Y93.9 Activity, unspecified; Y92.000 Kitchen of unspecified non-institutional (private) residence as the place of occurrence of the external cause; E66.01 Morbid (severe) obesity due to excess calories; Z68.42 Body mass index [BMI] 45.0-49.9, adult
CPT/HCPCS: 36415 ×3; 70450; 72125; 72131; 80048; 80053; 82550 ×2; 82552; 82553 ×2; 82948; 84484 ×2; 85025; 99284; G0378 ×2; J7030

== ENCOUNTER → 2019-09-25 | Outpatient (CLI) | payer MEDICARE ==
[~2019-09-25] MED LIST changes: +ASPIR 8181 MG PO; +CLOPIDOGREL75 MG PO; +GABAPENTIN100 MG PO; +HYDROCODON-ACE1 EAC9 PO; +IOPAMIDOL 370 MG/ML 200 ML INFUS..BTL INJ ONE; +KEFLEX500 MG PO; +LEVOTHYROXINE125 MCG PO; +NOVOLOG100 UNITS1; +SODIUM CHLORIDE 0.9% 250ML 250 ML ONE; +SODIUM CHLORIDE 0.9% 500ML 500 ML ONE; +SODIUM CHLORIDE 0.9% 50ML 50 ML ONE; +SPIRONOLACTONE50 MG PO; +TRESIBA SC
[2019-09-25 10:43] LABS: CREATININE, SERUM 1.33 mg/dL (0.72-1.25)
--- NOTE | 2019-09-25 13:07 | Diagnostic Imaging Report ---
CT of the abdomen and pelvis, 09/25/2019. History: Hematuria, renal cyst. Comparison: None available. Technique: Multidetector CT scanning of the abdomen and pelvis was performed from the level of the lung bases to the inferior pubic rami before and after intravenous administration of contrast. No oral contrast was given. Coronal and sagittal multiplanar reformations were obtained. RADIATION DOSE: Total DLP: 2465 mGy*cm Dose modulation, iterative reconstruction, and/or weight based adjustment of the mA/kV was utilized to reduce the radiation dose to as low as reasonably achievable. Discussion: Evaluation is limited due to artifact caused by patient body habitus. LUNG BASES: There is left basilar linear scarring. There is calcification of the coronary arteries. ABDOMEN: 2 nonenhancing cysts are present in the right kidney, the largest in the upper pole measuring 3.8 cm and one in the lower pole measuring 1.8 cm. There is no evidence of nephrolithiasis or hydronephrosis. Subcentimeter hypodensities are noted in the left kidney which are too small to characterize. Liver is enlarged measuring over 17 cm in length. The gallbladder, biliary tree, spleen, pancreas, and adrenal glands are normal. The hepatic vein, portal vein, and splenic vein are patent. The abdominal aorta is within normal limits for size. Evaluation of bowel is limited without oral contrast. There is no bowel dilatation. There is no evidence of adenopathy or free fluid. PELVIS: The bladder, prostate, and seminal vesicles are unremarkable. There is no evidence of free fluid or adenopathy. BONES AND SOFT TISSUES: Advanced degenerative changes are present throughout the lumbar spine without evidence of lytic or sclerotic lesion. IMPRESSION: 1. Limited exam due to patient body habitus. 2. Simple right renal cysts. 3. Hepatomegaly. Otherwise unremarkable exam. Signed by: Gomez Dozier on 09/25/2019 1:04 PM
== END ==
LOC: CT 09:28
PROVIDERS: ATTEND Urology
DX: R31.29 Other microscopic hematuria (principal)
CPT/HCPCS: 36415; 74178; 82565; 84520; 96360; J7040; J7050; Q9967

== ENCOUNTER → 2020-01-05 | Outpatient (CLI) | payer MEDICARE ==
[~2020-01-05] MED LIST changes: -IOPAMIDOL 370 MG/ML 200 ML INFUS..BTL INJ ONE; -SODIUM CHLORIDE 0.9% 250ML 250 ML ONE; -SODIUM CHLORIDE 0.9% 500ML 500 ML ONE; -SODIUM CHLORIDE 0.9% 50ML 50 ML ONE
--- NOTE | 2020-01-05 12:33 | Diagnostic Imaging Report ---
Ultrasound of the Kidneys, 01/05/2020. Clinical History: Cystic kidney. Comparison: CT of the abdomen and pelvis dated 09/25/2019. Discussion: Sonographic evaluation of the kidneys is performed. Right kidney: 11.7 cm in length, normal in size, with cortical thickness of 1.6 cm. Normal cortical echogenicity. In the upper pole of the right kidney measures 3.2 x 3.1 x 3.1 cm anechoic cyst and in the lower pole of the right kidney there is a 1.1 x 1.4 x 1.9 cm anechoic cyst. No shadowing calculus. No hydronephrosis. Left kidney: 0.2 cm in length, normal in size, with cortical thickness of 2.0 cm. Normal cortical echogenicity. No mass. No shadowing calculus. No hydronephrosis. Limited Doppler evaluation demonstrates normal color Doppler flow within bilateral renal candelaria. Fluid: No perinephric fluid. Bladder: Unremarkable. IMPRESSION: Simple right renal cysts. Otherwise, unremarkable ultrasound of the bilateral kidneys.. Signed by: Zack Stanford MD on 01/05/2020 12:30 PM
== END ==
LOC: US 09:22
PROVIDERS: ATTEND Urology
DX: N28.1 Cyst of kidney, acquired (principal)
CPT/HCPCS: 76770